=== PATIENT | male | born 1925 | race Caucasian/White ===

== ENCOUNTER 2016-04-06 15:16 | Emergency (ER) | payer OTHER ==
[2016-04-06 15:24] VITALS: TEMP 97.5; BMI 25.8
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
[2016-04-06 16:38] LABS: BASOPHIL 0.5 % (0-2.0); EOSINOPHIL 2.4 % (0-4.5); MCH 29.1 pg (25.7-33.7); MEAN CELL VOLUME 88.2 fl (80-96); MEAN PLT VOLUME 7.6 fl (7.5-11.1); NEUTROPHILS 72.1 % (42.8-82.8); PLATELET COUNT 184 K/MM3 (134-434); RDW 15.1 % (11.9-15.9); WHITE BLOOD COUNT 7.3 K/mm3 (4.0-10.0)
[2016-04-06 17:16] LABS: ALBUMIN 2.9 g/dl (3.4-5.0); ANION GAP 8 (8-16); BILIRUBIN,TOTAL 0.5 mg/dL (0.2-1.0); CALCIUM 8.5 mg/dL (8.5-10.1); CO2 30 mmol/L (21-32); CREATININE 0.8 mg/dL (0.7-1.3); GLUCOSE,RANDOM 111 mg/dL (74-106); SGOT/AST 25 U/L (15-37); SGPT/ALT 10 U/L (12-78); TOT PROT 6.2 g/dl (6.4-8.2)
[2016-04-06 17:18] LABS: ALK PHOS 101 U/L (45-117); TROPONIN I < 0.02 ng/ml (0.00-0.05)
[2016-04-06 19:04] VITALS: BP 123/78; PULSE 58
--- NOTE | 2016-04-07 10:28 | EKG ---
Test Reason : Blood Pressure : / mmHG Vent. Rate : 058 BPM Atrial Rate : 057 BPM P-R Int : 000 ms QRS Dur : 098 ms QT Int : 460 ms P-R-T Axes : 000 -08 026 degrees QTc Int : 451 ms NORMAL SINUS RHYTHM WHEN COMPARED WITH ECG OF 14-FEB-2016 16:28, LA INTERVAL HAS DECREASED QUESTIONABLE CHANGE IN QRS AXIS Confirmed by ERYN NUNEZ MD ([id number]) on 04/07/2016 10:27:27 AM Referred By: Confirmed By:ERYN NUNEZ MD
== END 2016-04-06 19:14 | disposition home or self-care (01) ==
LOC: JER 15:16
DX: S60.511A Abrasion of right hand, initial encounter (principal); V47.0XXA Car driver injured in collision with fixed or stationary object in nontraffic accident, initial encounter; Y92.414 Local residential or business street as the place of occurrence of the external cause; Y93.89 Activity, other specified; Y99.8 Other external cause status; I25.10 Atherosclerotic heart disease of native coronary artery without angina pectoris; Z95.5 Presence of coronary angioplasty implant and graft; I25.2 Old myocardial infarction; F03.90 Unspecified dementia, unspecified severity, without behavioral disturbance, psychotic disturbance, mood disturbance, and anxiety; F06.8 Other specified mental disorders due to known physiological condition; D64.9 Anemia, unspecified; E03.9 Hypothyroidism, unspecified; Z87.19 Personal history of other diseases of the digestive system
CPT/HCPCS: 36415; 70450-TC; 80053; 82550; 84484; 85025; 93005; 93010; 99283-25